=== PATIENT | female | born 1935 | race Caucasian/White ===

== ENCOUNTER 2023-02-05 17:38 | Inpatient (IN) | payer MEDICARE, OTHER ==
[2023-02-05] MEDS ORDERED: hydrALAZINE 20 MG/ML VIAL SLOW IVP PRN (18:21)
[2023-02-05] MEDS ORDERED: Ipratropium/Albuterol 3 ML NEB NEB PRN (18:21)
[2023-02-05] MEDS ORDERED: Morphine 2 MG/ML VIAL SLOW IVP PRN (18:21)
[2023-02-05] MEDS ORDERED: TETANUS, DIPHTHERIA TOX,ADULT (TDVAX) 0.5 ML VIAL IM ONE (18:21)
[2023-02-05] MEDS ORDERED: Ondansetron ODT 4 MG TAB PO PRN (18:21)
[2023-02-05] MEDS: Famotidine 20 MG TAB PO SCH (19:42)
[2023-02-05] MEDS: Acetaminophen 325 MG TAB PO SCH (19:42)
[2023-02-05] MEDS: traMADol HCl 50 MG TAB PO PRN (19:42)
[2023-02-05 19:52] VITALS: BMI 23.2
[2023-02-05 20:36] LABS: Bacteria/HPF None Seen HPF (None Seen); Bilirubin Negative (Negative); Blood, Urine Negative (Negative); Clarity Clear (Clear); Glucose, Urine (Dipstick) Normal (Negative); Ketone, Urine 10 mg/dL (Negative); Leukocyte Negative Leu/uL (Negative); Nitrite Negative (Negative); Protein, Urine (Dipstick) 10 mg/dL (Neg-Trace); RBC/HPF 0-3 HPF (0-3); Specific Gravity, Urine 1.019 (1.002-1.036); Squamous Epithelial 0-3 HPF (0-3); Urobilinogen Normal mg/dL (Less than 2); WBC/HPF 0-3 HPF (0-3); pH, Urine 6.5 (5.0-9.0)
[2023-02-06] MEDS: Acetaminophen 325 MG TAB PO SCH ×2 (00:22→05:14)
[2023-02-06] MEDS: traMADol HCl 50 MG TAB PO PRN ×2 (05:15→17:23)
[2023-02-06 06:14] LABS: #Basophils 0.1 thou/uL (0.0-0.2); #Eosinphils 0.3 thou/uL (0.0-0.7); #Monocytes 0.7 thou/uL (0.11-0.59); #Neutrophils 5.9 thou/uL (1.40-6.50); %Basophils 0.6 % (0.0-1.0); %Eosinophils 3.2 % (0.0-10.0); %Lymphocytes 15.2 % (21.0-51.0); %Monocytes 8.3 % (0.0-10.0); %Neutrophils 72.5 % (42.0-75.0); Hematocrit 40.2 % (36.0-47.0); Hemoglobin 13.2 g/dL (12.0-16.0); Mean Corpuscular HGB CONC 32.8 g/dL (32.0-36.0); Mean Corpuscular Hemoglobin 31.7 pg (27.0-31.0); Mean Corpuscular Volume 96.4 fl (78.0-98.0); Mean Platelet Volume 11.5 fL (7.4-10.4); Platelet Count 195 10x3/uL (130-400); RBC Distribution Width 13.6 % (11.5-14.5); Red Blood Cell (RBC) Count 4.17 mill/uL (4.20-5.40); White Blood Cell (WBC) Count 8.1 10x3/uL (4.8-10.8)
[2023-02-06 06:34] LABS: Anion Gap 12 mmol/L (10-20); BUN (Urea Nitrogen) 15 mg/dL (9.8-20.1); Calc. Creatinine Clearance 56 mL/min (70-130); Calcium 8.5 mg/dL (7.8-10.44); Carbon Dioxide 25 mmol/L (23-31); Chloride 106 mmol/L (98-107); Estimated GFR 80; Glucose 98 mg/dL (83-110); Potassium 3.3 mmol/L (3.5-5.1); Sodium 140 mmol/L (136-145)
[2023-02-06] MEDS ORDERED: Cyclobenzaprine 10 MG TAB PO PRN (07:13)
[2023-02-06] MEDS ORDERED: Acetaminophen 325 MG TAB PO SCH (07:13)
[2023-02-06] MEDS ORDERED: CEFAZOLIN 2 GM in Sodium Chloride 0.9% 100 ML IVPB SCH (07:15)
[2023-02-06] MEDS ORDERED: Non-Formulary Item 1 EACH (Ubidecarenone [Co Q-10] 200 MG Capsule) PO SCH (09:00)
[2023-02-06] MEDS ORDERED: FLU VACC QS2023(65UP)/MF59C/PF 60 MCG/0.5 ML SYRINGE IM ONE (09:00)
[2023-02-06] MEDS: Potassium Chloride 20 MEQ in Premix 1 BAG IVPB SCH ×2 (09:46→17:21)
[2023-02-06] MEDS ORDERED: fentaNYL 50 mcg/mL 1 mL Vial ONE ×2 (11:46→14:20)
[2023-02-06] MEDS: Polyethylene Glycol 3350 17 GM Packet PO SCH (11:55)
[2023-02-06] MEDS: Senokot S 8.6-50 MG TAB PO SCH ×2 (11:55→22:07)
[2023-02-06] MEDS: CO Q-10 CAPSULE 100 MG PO SCH (11:56)
[2023-02-06] MEDS: Acetaminophen 500 MG TAB PO SCH ×3 (11:59→23:15)
[2023-02-06] MEDS ORDERED: EPINEPHrine 1 MG/ML VIAL ONE (12:09)
[2023-02-06] MEDS ORDERED: Bupivacaine PF 0.5% 30 ML VIAL ONE (12:09)
[2023-02-06] MEDS ORDERED: CEFAZOLIN 2 GM VIAL ONE (12:34)
[2023-02-06] MEDS ORDERED: Sodium Chloride 0.9% 100 ML ONE (12:34)
[2023-02-06] MEDS ORDERED: PROPOFOL 200 MG/20 ML VIAL ONE (12:57)
[2023-02-06] MEDS ORDERED: Ondansetron PF 4 MG/2 ML Vial ONE (12:57)
[2023-02-06] MEDS ORDERED: PHENYLEPHRINE-NS 100 MCG/ML 10 ML SYRINGE ONE (12:57)
[2023-02-06] MEDS ORDERED: Rocuronium Bromide 10 MG/ML (10ML VIAL) ONE (12:57)
[2023-02-06] MEDS ORDERED: Lidocaine 1% PF 5 ML VIAL ONE (12:57)
[2023-02-06] MEDS ORDERED: Promethazine HCl 25 MG/ML VIAL IM PRN (13:12)
[2023-02-06] MEDS ORDERED: Ondansetron HCl/PF 4 MG/2 ML Vial IVP PRN (13:12)
[2023-02-06] MEDS ORDERED: SUGAMMADEX SODIUM 200 MG/2 ML VIAL ONE (13:20)
[2023-02-06] MEDS ORDERED: Vancomycin 1 GM VIAL ONE (14:10)
[2023-02-06] MEDS: Lactated Ringer's 1,000 ML IV SCH ×2 (18:59→22:07)
[2023-02-06] MEDS ORDERED: Rosuvastatin 10 MG TAB PO SCH (21:00)
[2023-02-06] MEDS: Rosuvastatin 20 MG TAB PO SCH (22:07)
[2023-02-06] MEDS: Famotidine 20 MG TAB PO SCH (22:07)
[2023-02-06] MEDS: CEFAZOLIN 2 GM in Sodium Chloride 0.9% 100 ML IVPB SCH (22:07)
[2023-02-07] MEDS: CEFAZOLIN 2 GM in Sodium Chloride 0.9% 100 ML IVPB SCH ×2 (04:08→13:09)
[2023-02-07] MEDS: traMADol HCl 50 MG TAB PO PRN (06:15)
[2023-02-07] MEDS: Acetaminophen 500 MG TAB PO SCH ×2 (06:15→15:46)
[2023-02-07 07:08] LABS: #Basophils 0.1 thou/uL (0.0-0.2); #Eosinphils 0.3 thou/uL (0.0-0.7); #Monocytes 0.8 thou/uL (0.11-0.59); #Neutrophils 6.4 thou/uL (1.40-6.50); %Basophils 0.6 % (0.0-1.0); %Eosinophils 3.4 % (0.0-10.0); %Lymphocytes 11.7 % (21.0-51.0); %Monocytes 9.4 % (0.0-10.0); %Neutrophils 74.5 % (42.0-75.0); Hematocrit 37.7 % (36.0-47.0); Hemoglobin 12.1 g/dL (12.0-16.0); Mean Corpuscular HGB CONC 32.1 g/dL (32.0-36.0); Mean Corpuscular Hemoglobin 31.3 pg (27.0-31.0); Mean Corpuscular Volume 97.4 fl (78.0-98.0); Mean Platelet Volume 11.6 fL (7.4-10.4); Platelet Count 161 10x3/uL (130-400); RBC Distribution Width 13.5 % (11.5-14.5); Red Blood Cell (RBC) Count 3.87 mill/uL (4.20-5.40); White Blood Cell (WBC) Count 8.5 10x3/uL (4.8-10.8)
[2023-02-07 07:36] LABS: INR-International Normal Ratio 1.2; Prothrombin Time 16.2 sec (12.0-14.7)
[2023-02-07 07:37] LABS: PTT 34.4 sec (22.9-36.1)
[2023-02-07 08:31] LABS: Anion Gap 11 mmol/L (10-20); BUN (Urea Nitrogen) 12 mg/dL (9.8-20.1); Calc. Creatinine Clearance 59 mL/min (70-130); Calcium 8.2 mg/dL (7.8-10.44); Carbon Dioxide 23 mmol/L (23-31); Chloride 107 mmol/L (98-107); Estimated GFR 84; Glucose 85 mg/dL (83-110); Phosphorus 3.1 mg/dL (2.3-4.7); Potassium 3.6 mmol/L (3.5-5.1); Sodium 137 mmol/L (136-145)
[2023-02-07] MEDS: Aspirin 81 mg Enteric Coated Tablet PO SCH ×2 (09:15→20:23)
[2023-02-07] MEDS: Senokot S 8.6-50 MG TAB PO SCH ×2 (09:15→20:23)
[2023-02-07] MEDS: Polyethylene Glycol 3350 17 GM Packet PO SCH (09:15)
[2023-02-07] MEDS: CO Q-10 CAPSULE 100 MG PO SCH (09:15)
[2023-02-07] MEDS ORDERED: Ketorolac Tromethamine 30 MG/ML VIAL IVP PRN (13:03)
[2023-02-07] MEDS: Acetaminophen 325 MG TAB PO SCH ×2 (13:22→20:23)
[2023-02-07] MEDS ORDERED: Acetaminophen/Codeine 30-300mg Tablet PO SCH (13:30)
[2023-02-07] MEDS: Acetaminophen/Codeine 30-300mg Tablet PO SCH ×2 (18:49→23:28)
[2023-02-07] MEDS: Ketorolac Tromethamine 30 MG/ML VIAL IVP SCH ×2 (18:50→23:28)
[2023-02-07] MEDS: Rosuvastatin 20 MG TAB PO SCH (20:23)
[2023-02-07] MEDS: Famotidine 20 MG TAB PO SCH (20:23)
[2023-02-08 01:23] LABS: #Basophils 0.1 thou/uL (0.0-0.2); #Eosinphils 0.4 thou/uL (0.0-0.7); #Monocytes 0.8 thou/uL (0.11-0.59); #Neutrophils 4.5 thou/uL (1.40-6.50); %Basophils 0.8 % (0.0-1.0); %Eosinophils 5.6 % (0.0-10.0); %Lymphocytes 21.1 % (21.0-51.0); %Monocytes 10.6 % (0.0-10.0); %Neutrophils 61.6 % (42.0-75.0); Hematocrit 31.6 % (36.0-47.0); Hemoglobin 10.1 g/dL (12.0-16.0); Mean Corpuscular Hemoglobin 31.8 pg (27.0-31.0); Mean Corpuscular Volume 99.4 fl (78.0-98.0); Mean Platelet Volume 10.9 fL (7.4-10.4); Platelet Count 154 10x3/uL (130-400); RBC Distribution Width 13.5 % (11.5-14.5); Red Blood Cell (RBC) Count 3.18 mill/uL (4.20-5.40); White Blood Cell (WBC) Count 7.3 10x3/uL (4.8-10.8)
[2023-02-08] MEDS ORDERED: Hydrocortisone Sod Succ/PF 100 mg/2 ml Vial IVP SCH (02:00)
[2023-02-08] MEDS: Acetaminophen 325 MG TAB PO SCH ×4 (02:04→21:02)
[2023-02-08 05:29] LABS: #Eosinphils 0.1 thou/uL (0.0-0.7); #Monocytes 0.4 thou/uL (0.11-0.59); #Neutrophils 8.8 thou/uL (1.40-6.50); %Basophils 0.3 % (0.0-1.0); %Eosinophils 1.4 % (0.0-10.0); %Lymphocytes 4.8 % (21.0-51.0); %Monocytes 3.9 % (0.0-10.0); %Neutrophils 89.2 % (42.0-75.0); Hematocrit 33.4 % (36.0-47.0); Hemoglobin 10.8 g/dL (12.0-16.0); Mean Corpuscular HGB CONC 32.3 g/dL (32.0-36.0); Mean Corpuscular Hemoglobin 31.9 pg (27.0-31.0); Mean Corpuscular Volume 98.5 fl (78.0-98.0); Mean Platelet Volume 11.6 fL (7.4-10.4); Platelet Count 163 10x3/uL (130-400); RBC Distribution Width 13.5 % (11.5-14.5); Red Blood Cell (RBC) Count 3.39 mill/uL (4.20-5.40); White Blood Cell (WBC) Count 9.8 10x3/uL (4.8-10.8)
[2023-02-08] MEDS: Ketorolac Tromethamine 30 MG/ML VIAL IVP SCH ×3 (06:18→17:23)
[2023-02-08] MEDS: Acetaminophen/Codeine 30-300mg Tablet PO SCH (06:54)
[2023-02-08] MEDS ORDERED: Acetaminophen/Codeine 30-300mg Tablet PO PRN (07:59)
[2023-02-08] MEDS: Senokot S 8.6-50 MG TAB PO SCH (08:12)
[2023-02-08] MEDS: Aspirin 81 mg Enteric Coated Tablet PO SCH ×2 (08:12→21:01)
[2023-02-08] MEDS: Polyethylene Glycol 3350 17 GM Packet PO SCH (08:13)
[2023-02-08] MEDS: CO Q-10 CAPSULE 100 MG PO SCH (08:13)
[2023-02-08] MEDS: Rosuvastatin 20 MG TAB PO SCH (21:01)
[2023-02-08] MEDS: Famotidine 20 MG TAB PO SCH (21:01)
[2023-02-09] MEDS: Ketorolac Tromethamine 30 MG/ML VIAL IVP SCH ×3 (01:22→12:25)
[2023-02-09] MEDS: Acetaminophen 325 MG TAB PO SCH ×3 (02:57→14:47)
[2023-02-09] MEDS: CO Q-10 CAPSULE 100 MG PO SCH (08:48)
[2023-02-09] MEDS: Aspirin 81 mg Enteric Coated Tablet PO SCH (08:48)
[2023-02-09 15:20] VITALS: BP 122/66; TEMP 98.6
== END 2023-02-09 17:29 | disposition swing bed (61) | DRG 482 ==
LOC: SURG A 17:38
PROVIDERS: ADMIT Student in an Organized Health Care Education/Training Program; ATTEND Student in an Organized Health Care Education/Training Program
PROC: 0QS604Z Reposition Right Upper Femur with Internal Fixation Device, Open Approach (ICD-10-PCS; principal; 2023-02-06)
PROC: 30233J1 Transfusion of Nonautologous Serum Albumin into Peripheral Vein, Percutaneous Approach (ICD-10-PCS; 2023-02-08)
DX: S72.141A Displaced intertrochanteric fracture of right femur, initial encounter for closed fracture (principal); I10 Essential (primary) hypertension; W19.XXXA Unspecified fall, initial encounter; E78.5 Hyperlipidemia, unspecified; Z90.710 Acquired absence of both cervix and uterus; Y93.89 Activity, other specified
CPT/HCPCS: 36415; 80048; 82533; 83735; 84100; 85025; 85610; 85730; 86850; 86900; 86901; C1713; J0171; J1720; J1885; J2405; J2704; J3010; J3370; J3480; J3490; J7120; P9045; S0020

== ENCOUNTER → 2023-09-05 | Day surgery (SDC) | payer MEDICARE ==
[2023-09-03 08:47] VITALS: BMI 26.4
[~2023-09-05] MED LIST: Bacitracin Zinc Ointment 30 gm TUBE ONE; Bupivacaine 0.25% HCL 30 ML VIAL ONE; Dexamethasone 20 MG/5 ML VIAL ONE; EPINEPHrine 1 MG/ML VIAL ONE; Ondansetron PF 4 MG/2 ML Vial ONE; PROPOFOL 20 ML ONE; Rocuronium Bromide 10 MG/ML (10ML VIAL) ONE; SUGAMMADEX SODIUM 200 MG/2 ML VIAL ONE; Sodium Chloride 0.9% 100 ML ONE; cefOXitin 2 GM VIAL ONE; fentaNYL PF 100 MCG/2 ML SYRINGE ONE
== END | disposition home or self-care (01) ==
LOC: SDC 08:25
PROVIDERS: ATTEND Surgery
PROC: 0DTP0ZZ Resection of Rectum, Open Approach (ICD-10-PCS; principal; 2023-09-05)
DX: D37.8 Neoplasm of uncertain behavior of other specified digestive organs (principal); K62.2 Anal prolapse; K62.6 Ulcer of anus and rectum; D12.8 Benign neoplasm of rectum; I10 Essential (primary) hypertension; E78.00 Pure hypercholesterolemia, unspecified; Z90.710 Acquired absence of both cervix and uterus; Z79.899 Other long term (current) drug therapy
CPT/HCPCS: 45171; J0171; J0665; J0694; J1100; J2405; J2704; J3490; 88305